=== PATIENT | male | born 1955 | race African-American/Black ===

== ENCOUNTER 2018-09-12 16:45 | Emergency (ER) | payer MEDICARE, OTHER ==
--- NOTE | 2018-09-12 18:56 | RAD ---
CHEST PA AND LATERAL: 09/12/18 HISTORY: 62-year-old male with history of cough. COMPARISON: 06/19/08. FINDINGS: Large bulla in the right apex. Minimal right rib deformity, evidence for healed fractures. Heart size is within normal limits. The lungs are clear. No pneumonia, edema, or pleural effusion. IMPRESSION: No acute intrathoracic disease. Stable appearance from prior study. POS: [facility]
== END 2018-09-12 18:15 | disposition home or self-care (01) ==
LOC: ERS 16:45
DX: J20.9 Acute bronchitis, unspecified (principal); Z71.6 Tobacco abuse counseling; I10 Essential (primary) hypertension; F17.210 Nicotine dependence, cigarettes, uncomplicated; Z79.899 Other long term (current) drug therapy
CPT/HCPCS: 71046; 99406

== ENCOUNTER 2021-03-04 23:28 | Emergency (ER) | payer MEDICARE, MEDICAID ==
[2021-03-04] MEDS ORDERED: predniSONE 20 MG TAB ONE (23:49)
== END 2021-03-05 02:25 | disposition home or self-care (01) ==
LOC: ERS 23:28
DX: T49.8X1A Poisoning by other topical agents, accidental (unintentional), initial encounter (principal); L25.0 Unspecified contact dermatitis due to cosmetics; I10 Essential (primary) hypertension; F17.210 Nicotine dependence, cigarettes, uncomplicated
CPT/HCPCS: 99283; J7512

== ENCOUNTER 2021-08-31 12:09 | Emergency (ER) | payer MEDICARE, MEDICAID ==
[2021-08-31 18:52] LABS: SARS-CoV-2 PCR by NAA Not Detected (NotDetected)
== END 2021-08-31 15:36 | disposition home or self-care (01) ==
LOC: ERS 12:09
DX: J06.9 Acute upper respiratory infection, unspecified (principal); I10 Essential (primary) hypertension; F17.210 Nicotine dependence, cigarettes, uncomplicated; Z20.822 Contact with and (suspected) exposure to COVID-19
CPT/HCPCS: U0003; U0005; 99283